=== PATIENT | female | born 1930 | race Caucasian/White ===

== ENCOUNTER 2018-11-16 14:39 | Observation (INO) | payer MEDICARE ==
[~2018-11-16 14:39] MED LIST: ISOVUE-370 76%-LOCM 1 ML ONE
--- NOTE | 2018-11-16 15:58 | CT ---
CT ANGIOGRAM CHEST WITH CONTRAST: HISTORY: Syncopal episode. COMPARISON: Radiograph of same day. FINDINGS: CT angiogram chest performed after the intravenous administration of contrast. Three-D rendering pro vided. No pulmonary embolism. No pericardial effusion. Pulmonary trunk size is normal. No aneurysmal dilatation of the aorta. No mediastinal adenopathy. Limited evaluation of the upper abdomen is unremarkable. Mild scarring posterior segment right upper lobe. Mild atelectasis in the lower lobes. No pneumotho rax. No effusion. No focal airspace consolidation. No displaced rib fracture. IMPRESSION: No pulmonary embolism or other acute abnormality within the chest. No evidence for pneumonia. POS: [facility]
[2018-11-16] MEDS ORDERED: Enalaprilat Dihydrate 1.25 MG in Dextrose 5% in Water 50 ML SLOW IVP SCH (16:30)
[2018-11-16] MEDS ORDERED: Ondansetron PF 4 MG/2 ML Vial IVP PRN (17:06)
[2018-11-16] MEDS ORDERED: Acetaminophen 650 MG Suppository PR PRN (17:06)
[2018-11-16] MEDS ORDERED: Bisacodyl 5 MG TAB PO PRN (17:06)
[2018-11-16] MEDS ORDERED: Acetaminophen 325 MG TAB PO PRN (17:06)
[2018-11-16] MEDS ORDERED: hydrALAZINE 20 MG/ML VIAL SLOW IVP PRN (17:10)
[2018-11-16] MEDS ORDERED: Labetalol HCl 100 MG/20 ML VIAL SLOW IVP PRN (17:11)
[2018-11-16] MEDS ORDERED: Enalaprilat Dihydrate 1.25 MG in Dextrose 5% in Water 50 ML IVPB SCH (17:15)
--- NOTE | 2018-11-16 17:54 | CT ---
CT OF BRAIN PERFORMED WITHOUT CONTRAST ENHANCEMENT: 11/16/18 COMPARISON: 06/19/17 exam. HISTORY: Syncopal episode. There is some residual contrast present related to a CT angio of the chest done earlier today. The ventricular and cisternal system shows some mild atrophy. There is no signs of intracerebral hemo rrhage or extra-axial fluid collections. Mastoid air cells and visualized sinuses are clear. IMPRESSION: No acute intracranial abnormalities. POS: [facility]
--- NOTE | 2018-11-16 18:13 | HP ---
PRIMARY CARE PROVIDER: Dr. James Garrison. OFFICE MACHINE SERVICER: Dr. Escobar. THEATER MANAGER: Dr. Michael. CHIEF COMPLAINT: Near syncope. HISTORY OF PRESENT ILLNESS: Ms. Weiss is a pleasant 88-year-old lady, who was seen at [facility] on November 16, 2018. She reports that she has had spells where she feels like she is going to pass out. She reports that over the last few weeks. These spells have become more frequent, occurring when she goes to check her mail. Her mailbox is about 40 yards away. She never has this sensation when she is lying down. She was seen by her gauge operator last week. The plan was to obtain a 2D echocardiogram next week. She also reports being diagnosed with essential thrombocythemia. She is currently on hydroxyurea. She initially thought that the medication she is taking for essential thrombocythemia is causing her near syncopal episodes. She has been reassured that this is not the cause. Today, she left home to go to the [employer] shop around 8:30 a.m. After driving three miles from home, she felt like passing out. She turned the car around and went home. Her son took her to the emergency room at [place], from where she was transferred to the emergency room at [place]. She also reports that several years ago she had a syncopal episode while at [facility], for which she needed hospitalization. She was diagnosed with cardiac valve problem in 2017. Currently, she feels generalized weakness, but no other complaints. REVIEW OF SYSTEMS: All systems were reviewed and found to be negative. PAST MEDICAL HISTORY: Hypertension, essential thrombocythemia, and hypothyroidism. PAST SURGICAL HISTORY: Tonsillectomy, right knee surgery, hysterectomy, and bilateral rotator cuff surgery. FAMILY HISTORY: Significant for myocardial infarction in two brothers. CODE STATUS: I discussed her code status. She is full code. SOCIAL HISTORY: The patient denies tobacco use, alcohol use, or recreational drug use. ALLERGIES: BENADRYL, CODEINE, PENICILLIN, AND SULFA. CURRENT MEDICATIONS: 1. Levothyroxine 50 mcg daily. 2. Lasix 40 mg daily. 3. Amlodipine 2.5 mg daily. 4. Metoprolol tartrate 12.5 mg daily. 5. Losartan 25 mg daily. 6. Hydroxyurea 500 mg 2 times a day. 7. Potassium 10 mEq daily. 8. PreserVision one capsule daily. 9. Vision Formula tablet one tablet daily. 10. Aspirin 81 mg daily. 11. Clonidine 0.1 mg at bedtime. 12. Systane eye drops. PHYSICAL EXAMINATION: GENERAL: On examination, Ms. Weiss is awake and alert, not in acute distress. VITAL SIGNS: Blood pressure is 188/72, pulse 76, respiratory rate 18, and oxygen saturation 98% on room air. She is afebrile. EYES: No scleral icterus, no conjunctival pallor. ENT: Moist mucosal membranes. No oropharyngeal erythema or exudates. NECK: Supple, nontender, trachea is midline. RESPIRATORY: Accessory muscles of breathing are not active. Chest wall movements are symmetric bilaterally. Lungs are clear to auscultation without wheeze, rhonchi, or crepitations. CARDIOVASCULAR: S1 and S2 are heard, regular. Peripheral pulses palpable. ABDOMEN: Soft, nontender, bowel sounds are heard. NEUROLOGIC: Cranial nerves 2 through 12 are intact, no focal motor or sensory deficits, power is 5/5 in all four extremities, deep tendon reflexes 2+, plantars downgoing bilaterally. MUSCULOSKELETAL: Power is 5/5 in all 4 extremities. SKIN: No rashes or subcutaneous nodules. LYMPHATIC: No cervical lymphadenopathy. PSYCHIATRIC: Normal mood, normal affect, the patient is oriented to person, place, and time. LABORATORY DATA: Ms. Weiss's labs and investigations were reviewed. I reviewed her electrocardiogram, which shows normal sinus rhythm, no ST changes to suggest an acute coronary syndrome. I also reviewed her chest x-ray, which does not show any pulmonary infiltrates. She has normal white count, normal hemoglobin, normal platelet count of 159,000, platelet count was elevated at 429,000 on June 19, 2017. She has normal electrolytes and normal creatinine. Alkaline phosphatase is mildly elevated at 120. Otherwise, LFTs are unremarkable. BNP is mildly elevated at 143.3. ASSESSMENT AND PLAN: Ms. Weiss is a pleasant 88-year-old lady, who was seen at [facility] on November 16, 2018. Her problem list includes. 1. Near syncope: Ms. Weiss is presenting with near syncope, etiology unclear. It appears that her symptoms have been going on for at least a few weeks. She will be admitted to the hospital for further management. She will be monitored on telemetry to rule out arrhythmias. She will also have a noncontrast CT scan of the brain to rule out intracranial causes for her near syncope. Cardiology Service will be consulted. We will check her TSH level. We will also check orthostatic vitals. We will also check 2D echocardiogram. 2. Hypertensive urgency: When the patient initially presented to the hospital, she had blood pressure of 214/82 at this emergency room. She will be started on p.r.n. intravenous antihypertensives to bring the blood pressure down. 3. Essential thrombocythemia: Her platelet count is normal today. We will recheck CBC. 4. Abnormal LFTs: Alkaline phosphatase is very mildly elevated. This can be followed up as outpatient. Many thanks for allowing me to participate in your patient's care. Please feel free to contact me with any questions or concerns. LEVEL OF RISK: High. LEVEL OF COMPLEXITY: High. Job ID: [id number]
[2018-11-16 18:52] VITALS: BMI 25.0
[2018-11-16] MEDS: Hydroxyurea 500 MG CAP PO SCH (20:42)
[2018-11-16] MEDS ORDERED: Aspirin 81 mg Enteric Coated Tablet PO SCH (21:00)
[2018-11-16] MEDS ORDERED: Non-Formulary Item 1 EACH (Biotin [Biotin] 5 MG) PO SCH (21:00)
[2018-11-16] MEDS ORDERED: cloNIDine 0.1 MG TAB PO SCH (21:00)
[2018-11-16] MEDS ORDERED: Losartan 25 MG TAB PO SCH (21:00)
[2018-11-17] MEDS ORDERED: Levothyroxine Sodium 50 MCG TAB PO SCH (06:00)
[2018-11-17 06:32] LABS: Anion Gap 15 mmol/L (10-20); BUN (Urea Nitrogen) 19 mg/dL (9.8-20.1); Calc. Creatinine Clearance 48 mL/min (70-130); Calcium 9.3 mg/dL (7.8-10.44); Carbon Dioxide 25 mmol/L (23-31); Chloride 104 mmol/L (98-107); Estimated GFR-MDRD 66; Glucose 85 mg/dL (83-110); Potassium 3.5 mmol/L (3.5-5.1); Sodium 140 mmol/L (136-145)
[2018-11-17 07:01] LABS: #Eosinphils 0.1 thou/uL (0.0-0.7); #Lymphocytes 1.8 thou/uL (1.20-3.40); #Monocytes 0.3 thou/uL (0.11-0.59); #Neutrophils 1.9 thou/uL (1.40-6.50); %Eosinophils 2.9 % (0.0-10.0); %Monocytes 7.4 % (0.0-10.0); %Neutrophils 45.8 % (42.0-75.0); Hemoglobin 12.3 g/dL (12.0-16.0); MDiff Complete? YES; Macrocytosis SLIGHT = 6-15 cells (100X) (0-5/hpf); Mean Corpuscular HGB CONC 36.7 g/dL (32.0-36.0); Mean Corpuscular Hemoglobin 43.1 pg (27.0-31.0); Mean Platelet Volume 6.4 fL (7.4-10.4); Platelet Count 156 thou/uL (130-400); Platelet Morphology Comment Appears Adequate; RBC Distribution Width 16.8 % (11.5-14.5); Red Blood Cell (RBC) Count 2.85 mill/uL (4.20-5.40); White Blood Cell (WBC) Count 4.2 thou/uL (4.8-10.8)
[2018-11-17] MEDS ORDERED: Potassium Chloride 10 MEQ TAB PO SCH (08:00)
[2018-11-17] MEDS: Hydroxyurea 500 MG CAP PO SCH (08:58)
[2018-11-17] MEDS ORDERED: Enoxaparin Sodium 40 MG/0.4 ML SYRINGE SC SCH (09:00)
[2018-11-17] MEDS ORDERED: Amlodipine 5 MG TAB PO SCH (09:00)
[2018-11-17] MEDS ORDERED: Multivit, Therapeutic 1 TAB PO SCH (09:00)
[2018-11-17] MEDS ORDERED: Furosemide 40 MG TAB PO SCH (09:00)
[2018-11-17] MEDS ORDERED: Vit A,C & E/Lutein/Minerals Tablet PO SCH (09:00)
--- NOTE | 2018-11-17 16:30 | PDOC.HOSPP ---
- Subjective Encounter Date: 11/17/18 Encounter Time: 12:20 Subjective: Pt seen for followup re: near syncope. Feels well, no complaints. - Objective Vital Signs & Weight: Vital Signs (12 hours) Temp Pulse Resp BP BP BP BP 11/17/18 14:09 64 138/68 11/17/18 11:23 97.6 F 62 18 150/78 H 11/17/18 07:46 97.7 F 73 18 118/65 125/65 125/68 Pulse Ox 11/17/18 14:09 11/17/18 11:23 96 11/17/18 07:46 97 Weight Weight 140 lb 14.4 oz I&O: 11/16/18 11/17/18 11/18/18 06:59 06:59 06:59 Intake Total 480 Output Total 400 1875 Balance 80 -1875 Result Diagrams: 11/17/18 05:48 11/17/18 05:48 Additional Labs: Labs and MARs reviewed by wa Hospitalist ROS - Review of Systems Respiratory: denies: cough, shortness of breath, SOB with excertion, pleuritic pain, wheezing Cardiovascular: denies: chest pain, palpitations, orthopnea, paroxysmal noc. dyspnea, edema, light headedness - Medication Medications: Active Medications Generic Name Dose Route Start Last Admin Trade Name Freq PRN Reason Stop Dose Admin Acetaminophen 650 mg 11/16/18 17:06 11/16/18 21:44 Tylenol PO 650 mg Q4H PRN Administration Headache/Fever/Mild Pain (1-3) Amlodipine Besylate 2.5 mg 11/17/18 09:00 11/17/18 08:56 Norvasc PO 2.5 mg DAILY NUBIA Administration Aspirin 81 mg 11/16/18 21:00 11/16/18 20:42 Ecotrin PO 81 mg HS NUBIA Administration Clonidine 0.1 mg 11/16/18 21:00 11/16/18 20:42 Catapres PO 0.1 mg HS NUBIA Administration Enoxaparin Sodium 40 mg 11/17/18 09:00 11/17/18 08:57 Lovenox SC 40 mg 0900 NUBIA Administration Furosemide 40 mg 11/17/18 09:00 11/17/18 08:58 Lasix PO 40 mg DAILY NUBIA Administration Hydroxyurea 500 mg 11/16/18 21:00 11/17/18 08:58 Hydrea PO 500 mg BID NUBIA Administration Levothyroxine Sodium 50 mcg 11/17/18 06:00 11/17/18 05:45 Synthroid PO 50 mcg 0600 NUBIA Administration Losartan Potassium 100 mg 11/16/18 21:00 11/16/18 20:42 Cozaar PO 100 mg HS NUBIA Administration Metoprolol Succinate 12.5 mg 11/17/18 12:00 11/17/18 14:11 Toprol Xl PO 12.5 mg 1200 NUBIA Administration Multivitamins 1 tab 11/17/18 09:00 11/17/18 08:58 Theragran PO 1 tab DAILY NUBIA Administration Multivitamins/Minerals 1 tab 11/17/18 09:00 11/17/18 08:58 Ocuvite With Lutein PO 1 tab DAILY NUBIA Administration Potassium Chloride 10 meq 11/17/18 08:00 11/17/18 08:56 Klor-Con 10 PO 10 meq QAM-WM NUBIA Administration Sodium Chloride 10 ml 11/16/18 18:46 11/16/18 20:44 Flush - Normal Saline IVF 10 ml PRN PRN Administration Saline Flush - Exam General Appearance: NAD Eye: anicteric sclera ENT: moist mucosa Neck: supple Heart: RRR Respiratory: CTAB Gastrointestinal: soft, non-tender Extremities: no edema Musculoskeletal: normal tone, normal strength Psychiatric: normal affect, normal behavior Hosp A/P (1) Near syncope Status: Acute (2) HTN (hypertension) Code(s): I10 - ESSENTIAL (PRIMARY) HYPERTENSION Status: Chronic (3) Essential thrombocythemia Code(s): D47.3 - ESSENTIAL (HEMORRHAGIC) THROMBOCYTHEMIA Status: Chronic (4) Hypertensive urgency Code(s): I16.0 - HYPERTENSIVE URGENCY Status: Resolved - Plan plan discussed w/ family, out of bed/ambulate No recurrence of near syncope. No orthostatic hypotension. Monitor vital signs, titrate antihypertensives as needed. Await 2D echo report and cardiology input. Plt count is normal, continue hydroxyurea.
[2018-11-17 19:51] VITALS: BP 158/70; TEMP 98.5
--- NOTE | 2018-11-17 20:37 | CON ---
DATE OF CONSULTATION: 11/17/2018 REASON FOR CONSULTATION: Near-syncope. PRIMARY STRIP FEEDER: Judith Escobar MD HISTORY OF PRESENT ILLNESS: Ms. Weiss is a very pleasant 88-year-old white female who comes to the hospital as she was feeling presyncopal. She was driving around to the [employer], and she felt presyncopal. She decided to turn around and go back home. She was evaluated by Dr. Escobar, nurse practitioner in [place] last week and she had her clonidine decreased as it was felt that this was related to low blood pressure. She continued to feel this way. She had a minimal improvement. She had a followup with Dr. Escobar sometime later this week with an echocardiogram. She is currently feeling much better. She is back to normal. Her blood pressure is normal in the 110s to 130s. She is still negative. She has been told she has a valve problem in the past; however, nothing significant. She has essential thrombocytopenia. She feels she was started on hydroxyurea recently, and this may have made this situation a little bit worse, so she is already feeling it beforehand. PAST MEDICAL HISTORY: 1. Hypertension. 2. Essential thrombocythemia. 3. Hypothyroidism. PAST SURGICAL HISTORY: 1. Tonsillectomy. 2. Right knee surgery. 3. Hysterectomy. 4. Bilateral rotator cuff surgeries. FAMILY HISTORY: Two brothers with heart attacks in their 70s. SOCIAL HISTORY: No alcohol, tobacco, or drugs. OUTPATIENT MEDICATIONS: Include: 1. Levothyroxine 50 mcg a day. 2. Lasix 40 mg a day. 3. Amlodipine 2.5 mg a day. 4. Metoprolol tartrate 12.5 mg b.i.d. 5. Losartan 25 mg a day. 6. Hydroxyurea 500 mg b.i.d. 7. Potassium chloride 10 mEq a day. 8. PreserVision. 9. Vision Formula daily. 10. Aspirin 81. 11. Clonidine 0.1 mg at bedtime. She had her noon dose stopped recently. 12. Systane eye drops. ALLERGIES: BENADRYL, CODEINE, PENICILLIN, AND SULFA. REVIEW OF SYSTEMS: 12-point review of systems was done and was all negative unless stated in History of Present Illness. PHYSICAL EXAMINATION: VITAL SIGNS: Temperature 98.3, pulse 71, respiratory rate 16, sat 95% on room air, and blood pressure 136/66. GENERAL: Awake, alert, and oriented x3, in no distress. HEENT: Normocephalic and atraumatic. CARDIOVASCULAR: S1 and S2. No S3 or S4. LUNGS: Clear to auscultation. ABDOMEN: Soft. Positive bowel sounds. EXTREMITIES: Trace edema. SKIN: Warm and dry. LABORATORY DATA: Laboratory work was reviewed. White count of 4.2, hemoglobin of 12, hematocrit of 33, and platelet count of 156. Chemistries were unremarkable. TSH is normal. Echocardiogram was reviewed, [id number] AI, [id number] TR. RVSP was 30 mmHg. EF is normal. Grade 1 diastolic dysfunction. Mild to moderate PI was noted as well. ASSESSMENT AND PLAN: 1. Presyncope. 2. No tachy or bradyarrhythmia. No major valvular abnormality. 3. She may be discharged to home from the cardiac perspective. She will follow up with Dr. Escobar in the next 1 or 2 weeks. She may need to monitor, however, she was lightheaded when she came in, and her heart rate was normal. This may be related to moments of orthostatic hypotension or labile hypertension at times. On arrival to the ER, her blood pressure was 214/82, much normalized now. She may just need p.r.n. doses of clonidine. Thank you for letting me to participate in the care of your patient. We will sign off. Please call with any questions. Job ID: [id number]
--- NOTE | 2018-11-19 15:15 | DIS ---
DATE OF ADMISSION: 11/16/2018 DATE OF DISCHARGE: 11/17/2018 PRIMARY CARE PROVIDER: James Garrison MD DISCHARGE DIAGNOSIS: Near syncope. CONSULTATIONS DURING THIS HOSPITALIZATION: Cardiology, Dr. Smith. CONDITION OF PATIENT ON THE DAY OF DISCHARGE: Stable. I assessed Ms. Weiss on the day of discharge. Please refer to my daily hospitalist progress note for further details regarding this [id number] encounter. DISCHARGE MEDICATIONS: No change was made to her pre-admission home medications. FOLLOWUP APPOINTMENTS: Primary care provider in 3 to 5 days and with Cardiology Dr. Escobar in 2 weeks. HOSPITAL COURSE: Ms. Weiss is a pleasant 88-year-old lady, who was admitted to [facility] for near syncope on November 16, 2018. Please refer to my history and physical note dated November 16, 2018, for further details. She was monitored on telemetry. She was seen by Cardiology Service. She had 2D echocardiogram, which showed left ventricular ejection fraction of 55% to 60%, grade 1/3 diastolic dysfunction, moderate mitral regurgitation, aortic valve sclerosis but opening well, [id number] aortic regurgitation, mild to moderate tricuspid regurgitation, and mild to moderate pulmonic regurgitation. She also had hypertensive urgency at the time of admission, which resolved during this hospitalization. She has been cleared for discharge by Cardiology Service and will follow up with Cardiology Service as outpatient. Many thanks for allowing me to participate in your patient's care. Please feel free to contact me with any questions or concerns. DISCHARGE DESTINATION: Home. Job ID: [id number]
== END 2018-11-17 20:35 | disposition home or self-care (01) ==
LOC: ERS 14:39 → 2SW 18:43
PROVIDERS: ADMIT Internal Medicine; ATTEND Internal Medicine
DX: R55 Syncope and collapse (principal); I08.3 Combined rheumatic disorders of mitral, aortic and tricuspid valves; I16.0 Hypertensive urgency; I10 Essential (primary) hypertension; D47.3 Essential (hemorrhagic) thrombocythemia; E03.9 Hypothyroidism, unspecified; R74.8 Abnormal levels of other serum enzymes; Z79.82 Long term (current) use of aspirin; Z79.899 Other long term (current) drug therapy; Z88.0 Allergy status to penicillin; Z88.2 Allergy status to sulfonamides; Z88.5 Allergy status to narcotic agent; Z88.8 Allergy status to other drugs, medicaments and biological substances
CPT/HCPCS: 36415; 70450; 71275; 80048; 84443; 85025; 93005; 93306; 96365; 96372; G0378; J1650; Q9966

== ENCOUNTER 2019-10-11 19:52 | Inpatient (IN) | payer MEDICARE, OTHER ==
[2019-10-11 23:07] VITALS: BMI 23.8
[2019-10-11] MEDS ORDERED: Diltiazem 125 MG in Sodium Chloride 0.9% 100 ML IVPB SCH (23:15)
[2019-10-11] MEDS ORDERED: Enoxaparin Sodium 60 MG/0.6 ML SYRINGE SC SCH (23:15)
[2019-10-11 23:43] LABS: Troponin I 0.056 ng/mL (< 0.028)
--- NOTE | 2019-10-11 23:43 | HP ---
REASON FOR ADMISSION: Shortness of breath. HISTORY OF PRESENT ILLNESS: This is an 89-year-old female patient who was driving home and while driving, she developed acute onset of shortness of breath. She was able to make it home and then took her blood pressure. Her heart rate was found to be 178. She called her neighbor who is an EMT who rechecked her blood pressure and heart rate and advised to go to the emergency room. In the ER, she was found to be in rapid atrial fibrillation. She was started on a Cardizem drip. Her heart rate came down and she felt much better. The patient follows with mass spectroscopist Dr. Escobar and she saw the doctor a month ago. There was a discussion that she might need a pacemaker, the patient has been having episodes where she has sudden onset of lightheadedness and near syncope. Reviewing her records, her last admission to our hospital was in October 2018. She was admitted for a near syncopal episode. She had an echocardiogram that showed an EF of 55% and grade 1 diastolic dysfunction. PAST MEDICAL HISTORY: 1. High blood pressure. 2. Essential thrombocythemia. 3. Hypothyroidism. PAST SURGICAL HISTORY: 1. Post knee surgery. 2. Post hysterectomy. 3. Bilateral rotator cuff surgery. FAMILY HISTORY: Positive for coronary artery disease. SOCIAL HISTORY: She does not smoke. Does not drink alcohol. REVIEW OF SYSTEMS: All systems reviewed except the above mentioned, found to be negative. PHYSICAL EXAMINATION: GENERAL: She is awake, alert, oriented, does not appear in distress. VITAL SIGNS: Her blood pressure is 121/68, heart rate of 90, temperature is 98.4, saturating 99% room air. HEAD: Nontraumatic, normocephalic. Pupils equal, reactive to light. Extraocular movements are intact. Nonicteric sclerae. Well injected conjunctivae. Oral mucosa normal. Nasal mucosa normal. NECK: Supple. No adenopathy. No murmur. Thyroid is not palpable. Trachea is midline. No supraclavicular adenopathy. HEART: S1, S2 irregular. No murmurs. No gallops. No friction rubs. No displacement of PMI. LUNGS: Clear to auscultation bilaterally. No wheezes, rhonchi or crackles. ABDOMEN: Bowel sounds are positive. Nontender abdomen. No hepatosplenomegaly. No lower extremity edema. No cyanosis noted. Neurologic: Cranial nerve 2-12 within normal limits. Normal motor function. Normal sensory function. Normal reflexes. LABORATORY DATA: Blood work shows WBC of 6.9, hemoglobin 14.7, platelets of 295. Sodium 143, potassium 3.1, bicarb 21, creatinine 1.08, magnesium 2.1. IMAGING: Chest x-ray shows no acute cardiopulmonary process. EKG shows rapid atrial fibrillation. ASSESSMENT AND PLAN: This is an 89-year-old female patient who is presenting with rapid atrial fibrillation. Cardiac: Patient will be on telemetry. She will be maintained on a Cardizem drip. We will start her on Lovenox. We will place a consultation for Cardiology for further recommendations. She said that she recently had an echocardiogram. I would not repeat that test unless Cardiology wants to order it again. We will cycle cardiac enzymes and provide with blood pressure control. We will maintain her on Lasix, on aspirin. Continue with her Toprol. Endocrinology: She is on levothyroxine. Continue with that. Hematology: She is on hydroxyurea. Continue with that as well. For deep venous thrombosis prophylaxis, she will be on sequential compression devices. I did discuss with her code status and she wishes to be full code. Job ID: [id number]
[2019-10-12] MEDS ORDERED: Enoxaparin Sodium 60 MG/0.6 ML SYRINGE SC SCH ×2 (01:30→23:04)
[2019-10-12 05:11] LABS: #Eosinphils 0.1 thou/uL (0.0-0.7); #Monocytes 0.7 thou/uL (0.11-0.59); #Neutrophils 4.1 thou/uL (1.40-6.50); %Basophils 0.6 % (0.0-1.0); %Lymphocytes 29.6 % (21.0-51.0); %Monocytes 10.1 % (0.0-10.0); %Neutrophils 58.7 % (42.0-75.0); Mean Corpuscular HGB CONC 34.9 g/dL (32.0-36.0); Mean Corpuscular Hemoglobin 38.6 pg (27.0-31.0); Mean Platelet Volume 6.6 fL (7.4-10.4); Platelet Count 251 thou/uL (130-400); RBC Distribution Width 11.8 % (11.5-14.5); Red Blood Cell (RBC) Count 3.89 mill/uL (4.20-5.40); White Blood Cell (WBC) Count 6.9 thou/uL (4.8-10.8)
[2019-10-12 05:29] LABS: Troponin I 0.046 ng/mL (< 0.028)
[2019-10-12 05:40] LABS: Anion Gap 15 mmol/L (10-20); BUN (Urea Nitrogen) 21 mg/dL (9.8-20.1); Calc. Creatinine Clearance 42 mL/min (70-130); Calcium 8.9 mg/dL (7.8-10.44); Carbon Dioxide 24 mmol/L (23-31); Chloride 109 mmol/L (98-107); Estimated GFR-MDRD 58; Glucose 108 mg/dL (83-110); Potassium 3.5 mmol/L (3.5-5.1); Sodium 144 mmol/L (136-145)
[2019-10-12] MEDS: Levothyroxine Sodium 50 MCG TAB PO SCH (05:56)
[2019-10-12] MEDS ORDERED: Amlodipine 5 MG TAB PO SCH (09:00)
[2019-10-12] MEDS: Losartan 25 MG TAB PO SCH (09:28)
[2019-10-12] MEDS: Furosemide 40 MG TAB PO SCH (09:28)
[2019-10-12] MEDS ORDERED: Metoprolol Tartrate 25 MG TAB PO SCH (10:30)
[2019-10-12] MEDS: Hydroxyurea 500 MG CAP PO SCH (10:45)
--- NOTE | 2019-10-12 11:06 | PDOC.HOSPP ---
- Subjective Encounter Date: 10/12/19 Encounter Time: 09:45 Subjective: Patient feels better than yesterday. Pulse in the 70s. She is on home Lopressor which we can start today at slightly higher dose and wean her off the Cardizem drip. She has seen Dr. Escobar in the past. It appears a few weeks ago she had a event monitor and plan to be evaluated by Dr. Rowe for possible pacer placement. She is not able to get an appointment until October. She is converted to sinus rhythm around 3 AM. - Objective Vital Signs & Weight: Vital Signs (12 hours) Temp Pulse Resp BP Pulse Ox 10/12/19 09:28 68 10/12/19 07:50 98.3 F 68 16 141/64 H 98 10/12/19 03:22 98.4 F 74 18 149/67 H 97 Weight Weight 138 lb 8 oz I&O: 10/11/19 10/12/19 10/13/19 06:59 06:59 06:59 Intake Total 900 Output Total 50 200 Balance 850 -200 Result Diagrams: 10/12/19 04:48 10/12/19 04:48 Hospitalist ROS - Medication Medications: Active Medications Generic Name Dose Route Start Last Admin Trade Name Freq PRN Reason Stop Dose Admin Furosemide 40 mg 10/12/19 09:00 10/12/19 09:28 Lasix PO 40 mg DAILY NUBIA Administration Hydroxyurea 500 mg 10/12/19 09:00 10/12/19 10:45 Hydrea PO 500 mg DAILY NUBIA Administration Levothyroxine Sodium 50 mcg 10/12/19 06:00 10/12/19 05:56 Synthroid PO 50 mcg 0600 NUBIA Administration Losartan Potassium 100 mg 10/12/19 09:00 10/12/19 09:28 Cozaar PO 100 mg DAILY NUBIA Administration Metoprolol Tartrate 25 mg 10/12/19 10:30 10/12/19 10:44 Lopressor PO 10/12/19 12:30 25 mg NOW NUBIA Administration - Exam General Appearance: NAD, awake alert Eye: PERRL ENT: normocephalic atraumatic Neck: supple Heart: RRR Respiratory: CTAB, normal chest expansion Gastrointestinal: soft, normal bowel sounds Neurological: no focal deficits Psychiatric: A&O x 3 Hosp A/P - Plan A. fib with RVR -Rate control with Cardizem drip at 5 -Will wean her off the drip. -She is already converted to sinus rhythm. -We will start her on her home regimen of Lopressor. -Currently she is on Lovenox twice a day will wait for the echo if it is normal with no valvular abnormalities will likely put her on Eliquis. -Patient states that she has no history of peptic ulcer disease or any kind ofGI bleed in the past. Idiopathic thrombocytopenia -Continue with hydroxyurea Hypothyroidism -Continue with the levothyroxine supplement. TSH normal range
[2019-10-12] MEDS ORDERED: Metoprolol Tartrate 5 MG/5 ML VIAL IVP PRN (11:07)
[2019-10-12] MEDS ORDERED: Amiodarone 200 MG TAB PO SCH (11:45)
--- NOTE | 2019-10-12 12:45 | CON ---
DATE OF CONSULTATION: HISTORY OF PRESENT ILLNESS: Liliana Weiss is an 89-year-old white female who has followed with Dr. Escobar for many years. She does have mild proximal LAD disease on catheterization in July 2016. She was hospitalized here in October 2018 with lightheadedness. Echo at that time revealed ejection fraction of 55% to 60% with diastolic dysfunction, moderate mitral regurgitation, [id number] aortic insufficiency, aortic valvular sclerosis, [id number]-[id number] tricuspid regurgitation, and pikc-fv-ifnmyjow pulmonic regurgitation. She was most recently seen in the office on September 10, 2019. She had a monitor placed previously, and it was felt that she may have needed a pacemaker. She did have episodes of supraventricular tachycardia, which appeared to be fairly irregular and may have been atrial fibrillation. She now is admitted after an episode where she became acutely short of breath. She denied any palpitations or chest discomfort. She went to the [facility], was found to be in atrial fibrillation with a rate of 153 per minute. She was given Cardizem 20 mg IV, placed on 5 mg/hour drip, and transferred here. She has since converted to sinus rhythm. 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 OPERATIONS: Hysterectomy, left rotator cuff repair, right knee surgery, right rotator cuff repair, tonsillectomy, and removal of breast cysts. MEDICATIONS: 1. Amlodipine 2.5 mg b.i.d. 2. Aspirin 81 daily. 3. Clonidine 0.1 mg at bedtime. 4. Furosemide 40 q.a.m. 5. Hydroxyurea 500 mg daily. 6. Levothyroxine 50 mcg daily. 7. Losartan 100 mg daily. 8. Metoprolol 12.5 mg daily. 9. Potassium chloride 10 mEq daily. ALLERGIES: CODEINE, BENADRYL, HYDROCODONE, PENICILLIN, AND SULFA. SOCIAL HISTORY: She does not smoke or drink. PHYSICAL EXAMINATION: VITAL SIGNS: Blood pressure 141/64, pulse of 68 and regular. HEENT: PERRL. NECK: Supple. CHEST: Clear. CARDIAC: S1 and S2 normal without any S3, S4, or murmurs. ABDOMEN: Normal bowel sounds without tenderness. EXTREMITIES: Reveal no clubbing, cyanosis, or edema. NEUROLOGICAL: Grossly intact. SKIN: Warm and dry. LABORATORY DATA: Admission EKG in [facility] revealed atrial fibrillation with rapid ventricular response of 153 per minute and nonspecific ST and T-wave changes. Hemoglobin 15.0, hematocrit 43.1, white count 6900, and platelets 251,000 (in the past, platelets have been as high as 475,000). Sodium 144, potassium 3.5, chloride 109, carbon dioxide 24, BUN 21, and creatinine 0.91. Troponin I 0.056. TSH is normal x2. IMPRESSION: 1. Atrial fibrillation with fast ventricular response, which has converted with intravenous Cardizem. 2. Uvq-MY-nedkajtnh myocardial infarction type 2. 3. Hypertension. 4. Essential thrombocytosis. 5. Hypothyroidism. 6. Mild coronary artery disease. PLAN: Ms. Weiss has had falls at home with head trauma with such a fall last year. I will maintain her on the Lovenox 1 mg/kg b.i.d., but she may not be a good candidate for anticoagulation due to her falls. We discussed antiarrhythmics to suppress her atrial fibrillation. She is very concerned about the pruett of the medication and states that a friend of hers was placed on rhythm medicine that cost 800 dollars a month. She states she cannot afford this. Therefore, I will start her on amiodarone 400 mg b.i.d. She will continue to be monitored for the next 2 to 3 days. Echocardiogram will be performed. Job ID: [id number] [id number]
[2019-10-12 14:07] LABS: SARS-CoV-2 MS2 Positive; SARS-CoV-2 N Gene Negative; SARS-CoV-2 S Gene Negative; SARS-CoV-2 by NAA Not Detected (NotDetected); SARS-CoV-2 orf1ab Negative
[2019-10-12] MEDS: Amiodarone 200 MG TAB PO SCH (21:53)
[2019-10-12] MEDS: cloNIDine 0.1 MG TAB PO SCH (21:53)
[2019-10-12] MEDS: Aspirin 81 mg Enteric Coated Tablet PO SCH (21:53)
[2019-10-12] MEDS: Metoprolol Tartrate 25 MG TAB PO SCH (21:53)
[2019-10-13] MEDS: Levothyroxine Sodium 50 MCG TAB PO SCH (05:26)
[2019-10-13 05:39] LABS: Hemoglobin 14.3 g/dL (12.0-16.0); Platelet Count 257 thou/uL (130-400)
[2019-10-13] MEDS: Furosemide 40 MG TAB PO SCH (08:51)
[2019-10-13] MEDS: Amiodarone 200 MG TAB PO SCH ×2 (08:51→21:20)
[2019-10-13] MEDS: Losartan 25 MG TAB PO SCH (08:51)
[2019-10-13] MEDS: Metoprolol Tartrate 25 MG TAB PO SCH ×2 (08:51→21:20)
[2019-10-13] MEDS: Hydroxyurea 500 MG CAP PO SCH (08:51)
[2019-10-13] MEDS ORDERED: Amlodipine 5 MG TAB PO SCH (11:00)
--- NOTE | 2019-10-13 12:11 | PDOC.HOSPP ---
- Subjective Encounter Date: 10/13/19 Encounter Time: 10:10 Subjective: She needs resting. She does not have any acute distress. She wants to know whether she would be able to get the labs that was scheduled to get at Dr. Michael 's clinic on Monday. She is not a strong candidate for anticoagulation for her A. fib given her fall history. Cardiology recommended amiodarone and she is currently on 400 with twice a day. We will get basic LFT. Her TSH is normal range. - Objective Vital Signs & Weight: Vital Signs (12 hours) Temp Pulse Resp BP Pulse Ox 10/13/19 11:37 98.2 F 60 16 193/77 H 96 10/13/19 07:51 97.9 F 75 17 176/79 H 97 10/13/19 03:33 97.7 F 53 L 20 149/69 H 94 L Weight Weight 141 lb 14.4 oz I&O: 10/12/19 10/13/19 10/14/19 06:59 06:59 06:59 Intake Total 900 1200 Output Total 50 200 Balance 850 1000 Result Diagrams: 10/13/19 04:46 10/13/19 04:46 Hospitalist ROS - Medication Medications: Active Medications Generic Name Dose Route Start Last Admin Trade Name Freq PRN Reason Stop Dose Admin Amiodarone HCl 400 mg 10/12/19 21:00 10/13/19 08:51 Cordarone PO 400 mg BID [facility] Administration Amlodipine Besylate 2.5 mg 10/13/19 11:00 10/13/19 11:43 Norvasc PO 10/13/19 13:00 2.5 mg NOW NUBIA Administration Aspirin 81 mg 10/12/19 21:00 10/12/19 21:53 Ecotrin PO 81 mg HS N[facility]IA Administration Clonidine 0.1 mg 10/12/19 21:00 10/12/19 21:53 Catapres PO 0.1 mg HS N[facility]IA Administration Furosemide 40 mg 10/12/19 09:00 10/13/19 08:51 Lasix PO 40 mg DAILY [facility] Administration Hydroxyurea 500 mg 10/12/19 09:00 10/13/19 08:51 Hydrea PO 500 mg DAILY [facility] Administration Levothyroxine Sodium 50 mcg 10/12/19 06:00 10/13/19 05:26 Synthroid PO 50 mcg 0600 [facility] Administration Losartan Potassium 100 mg 10/12/19 09:00 10/13/19 08:51 Cozaar PO 100 mg DAILY [facility] Administration Metoprolol Tartrate 25 mg 10/12/19 21:00 10/13/19 08:51 Lopressor PO 25 mg BID N[facility]IA Administration - Exam General Appearance: NAD, awake alert Eye: PERRL ENT: normocephalic atraumatic Neck: supple Heart: RRR Respiratory: CTAB, normal chest expansion Gastrointestinal: soft, normal bowel sounds Psychiatric: A&O x 3 Hosp A/P - Plan A. fib with RVR -Rate control with Cardizem drip at 5 -Will wean her off the drip. -She is already converted to sinus rhythm. -We will start her on her home regimen of Lopressor. -Currently she is on Lovenox twice a day will wait for the echo if it is normal with no valvular abnormalities will likely put her on Eliquis. -Patient states that she has no history of peptic ulcer disease or any kind ofGI bleed in the past. Idiopathic thrombocytopenia -Continue with hydroxyurea Hypothyroidism -Continue with the levothyroxine supplement. TSH normal range She wants to know whether she would be able to get the labs that was scheduled to get at Dr. Michael's clinic on Monday. She is not a strong candidate for anticoagulation for her A. fib given her fall history. Cardiology recommended amiodarone and she is currently on 400 with twice a day. We will get basic LFT. Her TSH is normal range. She already has a chest x-ray on October 10. Echo report shows EF of 55%; she also has mild mitral regurgitation aortic regurgitation as well as tricuspid regurgitation. And history of SVT on October 2018 and was on event monitor briefly. Her A. fib has been noted even in August 2019. I believe she is probably following Dr. Michael's clinic for her thrombocytopenia she is on hydroxyurea. Her platelet count today is 257,000. Try to reach Dr. Michael today. We will check with him tomorrow whether they need any other labs as she is scheduled to get it on Monday.
[2019-10-13 13:13] LABS: ALT (SGPT) 15 U/L (8-55); AST (SGOT) 28 U/L (5-34); Alkaline Phosphatase 110 U/L (40-110); Bilirubin, Direct 0.2 mg/dL (0.1-0.3); Bilirubin, Total 0.4 mg/dL (0.2-1.2); Protein, Total 7.4 g/dL (6.0-8.3)
[2019-10-13] MEDS: cloNIDine 0.1 MG TAB PO SCH (21:19)
[2019-10-13] MEDS: Aspirin 81 mg Enteric Coated Tablet PO SCH (21:20)
[2019-10-13] MEDS: Enoxaparin Sodium 60 MG/0.6 ML SYRINGE SC SCH (21:20)
[2019-10-14] MEDS: Levothyroxine Sodium 50 MCG TAB PO SCH (05:30)
[2019-10-14 05:47] LABS: ALT (SGPT) 12 U/L (8-55); AST (SGOT) 23 U/L (5-34); Albumin 3.5 g/dL (3.4-4.8); Alkaline Phosphatase 89 U/L (40-110); Bilirubin, Direct 0.2 mg/dL (0.1-0.3); Bilirubin, Total 0.5 mg/dL (0.2-1.2); Protein, Total 6.5 g/dL (6.0-8.3)
[2019-10-14] MEDS: Losartan 25 MG TAB PO SCH (08:42)
[2019-10-14] MEDS: Amiodarone 200 MG TAB PO SCH ×2 (08:42→20:17)
[2019-10-14] MEDS: Furosemide 40 MG TAB PO SCH (08:42)
[2019-10-14] MEDS: Hydroxyurea 500 MG CAP PO SCH (08:43)
[2019-10-14] MEDS ORDERED: cloNIDine 0.1 MG TAB PO PRN (08:47)
[2019-10-14] MEDS: Enoxaparin Sodium 60 MG/0.6 ML SYRINGE SC SCH ×2 (08:49→20:16)
[2019-10-14] MEDS: Metoprolol Tartrate 25 MG TAB PO SCH ×2 (08:50→20:18)
[2019-10-14] MEDS: Amlodipine 5 MG TAB PO SCH ×2 (08:51→20:18)
[2019-10-14] MEDS ORDERED: Amlodipine 5 MG TAB PO SCH (09:00)
--- NOTE | 2019-10-14 09:48 | PDOC.HOSPP ---
- Subjective Encounter Date: 10/14/19 Encounter Time: 09:46 Subjective: Patient seen and examined. No new complaints. The patient says she is feeling much better, denies any chest pain, shortness of breath or light headedness. No overnight events. - Objective Vital Signs & Weight: Vital Signs (12 hours) Temp Pulse Resp BP Pulse Ox 10/14/19 07:30 97.8 F 53 L 15 179/76 H 97 10/14/19 04:40 97.7 F 51 L 18 141/64 H 97 10/14/19 00:22 97.3 F L 48 L 18 107/57 L 93 L Weight Weight 137 lb 1.6 oz I&O: 10/13/19 10/14/19 10/15/19 06:59 06:59 06:59 Intake Total 1200 2040 Output Total 200 1300 Balance 1000 740 Result Diagrams: 10/13/19 04:46 10/13/19 04:46 Hospitalist ROS - Review of Systems Constitutional: denies: fever, chills Cardiovascular: denies: chest pain, palpitations, edema, light headedness Gastrointestinal: denies: nausea, vomiting, abdominal pain, diarrhea Neurological: denies: weakness, change in speech, confusion All other systems reviewed; all pertinent +/- noted in HPI/Subj - Medication Medications: Active Medications Generic Name Dose Route Start Last Admin Trade Name Freq PRN Reason Stop Dose Admin Amiodarone HCl 400 mg 10/12/19 21:00 10/14/19 08:42 Cordarone PO 400 mg BID NUBIA Administration Amlodipine Besylate 2.5 mg 10/14/19 09:00 10/14/19 08:51 Norvasc PO Not Given BID NUBIA Aspirin 81 mg 10/12/19 21:00 10/13/19 21:20 Ecotrin PO 81 mg HS NUBIA Administration Clonidine 0.1 mg 10/12/19 21:00 10/13/19 21:19 Catapres PO 0.1 mg HS NUBIA Administration Enoxaparin Sodium 60 mg 10/13/19 21:00 10/14/19 08:49 Lovenox SC 60 mg BID NUBIA Administration Furosemide 40 mg 10/12/19 09:00 10/14/19 08:42 Lasix PO 40 mg DAILY N[facility]IA Administration Hydroxyurea 500 mg 10/12/19 09:00 10/14/19 08:43 Hydrea PO 500 mg DAILY [facility]IA Administration Levothyroxine Sodium 50 mcg 10/12/19 06:00 10/14/19 05:30 Synthroid PO 50 mcg 0600 NUBIA Administration Losartan Potassium 100 mg 10/12/19 09:00 10/14/19 08:42 Cozaar PO 100 mg DAILY [facility]IA Administration Metoprolol Tartrate 25 mg 10/12/19 21:00 10/14/19 08:50 Lopressor PO Not Given BID NUBIA - Exam General Appearance: NAD, awake alert Eye: PERRL Neck: supple, no JVD Heart: RRR, no murmur, no gallops, no rubs, normal peripheral pulses Respiratory: CTAB, no wheezes, no rales, no ronchi, normal chest expansion, no tachypnea Gastrointestinal: soft, non-tender, non-distended, normal bowel sounds, no bruit , no guarding, no rigidity Extremities: no cyanosis, no edema Neurological: normal sensation to touch, no weakness, no focal deficits Psychiatric: normal affect, A&O x 3 Hosp A/P (1) Atrial fibrillation with RVR Code(s): I48.91 - UNSPECIFIED ATRIAL FIBRILLATION Status: Acute Plan: Patient sinus rhythm. On BB and amiodarone 400 mg twice daily per cardiology recommendation. Anticoagulated on Lovenox 1 mg/kg. Patient expressed concerned about the pruett of oral anticoagulants. Will need further discussion about options for anticoagulation. (2) Chronic ITP (idiopathic thrombocytopenia) Code(s): D69.3 - IMMUNE THROMBOCYTOPENIC PURPURA Status: Chronic Plan: Patient condition followed by Dr. Michael. Platelets 257 thousand this morning. Patient says that she needs to have labs drawn tomorrow per Dr. Michael. I spoke with Karen via phone and she said that the patient just needed a CBC with differential. Will order CBC with differential tomorrow. (3) Hypothyroidism Code(s): E03.9 - HYPOTHYROIDISM, UNSPECIFIED Status: Chronic Plan: TSH level within normal limits. Patient on levothyroxine 50 mcg daily. - Plan Lovenox for DVT prophylaxis. No GI prophylaxis. Full code. Discussed case with Dr. Sewell.
--- NOTE | 2019-10-14 12:56 | PDOC.CPN ---
- Subjective Date: 10/14/19 Time: 09:00 Interval history: The pt seen and examined. No overnight events. No cardiac complaints. - Objective Allergies/Adverse Reactions: Allergies Allergy/AdvReac Type Severity Reaction Status Date / Time codeine Allergy Verified 10/11/19 23:33 diphenhydramine Allergy Verified 10/11/19 23:33 [From Benadryl] hydrocodone Allergy hallucinati Verified 10/11/19 23:33 ons Penicillins Allergy numb Verified 10/11/19 23:33 around mouth Sulfa (Sulfonamide Allergy Verified 10/11/19 23:33 Antibiotics) Visit Medications: Current Medications Amiodarone HCl (Cordarone) 400 mg PO BID [facility] Last Admin: 10/14/19 08:42 Dose: 400 mg Amlodipine Besylate (Norvasc) 2.5 mg PO BID [facility] Last Admin: 10/14/19 08:51 Dose: Not Given Aspirin (Ecotrin) 81 mg PO HS [facility] Last Admin: 10/13/19 21:20 Dose: 81 mg Clonidine (Catapres) 0.1 mg PO HS [facility] Last Admin: 10/13/19 21:19 Dose: 0.1 mg Clonidine (Catapres) 0.1 mg PO Q4H PRN PRN Reason: Hypertension SBP>170 Enoxaparin Sodium (Lovenox) 60 mg SC BID [facility] Last Admin: 10/14/19 08:49 Dose: 60 mg Furosemide (Lasix) 40 mg PO DAILY [facility] Last Admin: 10/14/19 08:42 Dose: 40 mg Hydroxyurea (Hydrea) 500 mg PO DAILY [facility] Last Admin: 10/14/19 08:43 Dose: 500 mg Levothyroxine Sodium (Synthroid) 50 mcg PO 0600 [facility] Last Admin: 10/14/19 05:30 Dose: 50 mcg Losartan Potassium (Cozaar) 100 mg PO DAILY [facility] Last Admin: 10/14/19 08:42 Dose: 100 mg Metoprolol Tartrate (Lopressor) 25 mg PO BID [facility] Last Admin: 10/14/19 08:50 Dose: Not Given Metoprolol Tartrate (Lopressor) 5 mg IVP Q4H PRN PRN Reason: Blood Pressure SBP>150 HR>90 Stop: 10/15/19 11:08 Vital Signs & Weight: Vital Signs Temp Pulse Resp BP Pulse Ox 10/14/19 11:23 97.7 F 57 L 16 141/67 H 95 10/14/19 07:30 97.8 F 53 L 15 179/76 H 97 10/14/19 04:40 97.7 F 51 L 18 141/64 H 97 Weight 137 lb 1.6 oz - Physical Exam General: alert & oriented x3 HEENT: mucus membranes moist Neck: supple neck Cardiac: regular rate and rhythm, S1/S2 Lungs: clear to auscultation, decreased breath sounds Neuro: cranial nerve 2-12 intact Extremities: no edema - Labs Result Diagrams: 10/13/19 04:46 10/13/19 04:46 Troponin/CKMB Troponin I 0.046 ng/mL (< 0.028) H 10/12/19 04:48 - Telemetry Sinus rhythms and dysrhythmias: sinus rhythm - Assessment/Plan Assessment/Plan: 1. Afib with RVR - remains in SR since 10/13/2019; On Amiodarone 400mg BID since 10/13/2019; on Metoprolol and Lovenox BID; Will request EP consult by Dr Rowe. 2. Dizziness - she felt very dizziness and almost passed out prior to presenting ER; 3. HTN - stable with current med; cont. to monitor 4. hypothyroidism 5. Mod MR 6. Chronic ITP (idiopathic thrombocytopenia) MAR reviewed * Echo on 10/12/2019 with EF 55-60%, mod MR and AR, and mild TR
--- NOTE | 2019-10-14 18:07 | CON ---
DATE OF CONSULTATION: 10/14/2019 PRIMARY CARE PHYSICIAN: James Garrison MD. REFERRING CLIENT LIAISON: Judith Escobar MD REASON FOR CONSULTATION: Sick sinus syndrome, paroxysmal atrial fibrillation. HISTORY OF PRESENT ILLNESS: Ms. Weiss is a very pleasant 89-year-old white female with a history of coronary artery disease with cardiac catheterization in 2017 showing a 40% proximal LAD lesion, hypertension, essential thrombocytosis and TIA. She has a history of palpitations and had a 2-week monitor placed by Dr. Escobar, which showed episodes of narrow complex tachycardia without clear P waves. She was admitted on 10/10 with atrial fibrillation with rapid ventricular response and presyncope. She lives in [place], was driving home from [employer]. She felt her heart racing and moderate shortness of breath. There were no exacerbating or alleviating factors. The episode lasted several hours. When she got home, she began to feel worse, call her son, a neighbor took her to the [facility] where she was noted to be in atrial fibrillation with rapid ventricular response. She was treated with intravenous diltiazem and oral amiodarone. She has spontaneously converted to sinus rhythm. On telemetry today, she has had several-minute episode of sustained atrial tachycardia. Lab work shows troponin-I of 0.46. She has normal renal function and no anemia. PAST MEDICAL HISTORY: 1. Hypertension. 2. Essential thrombocytosis. 3. Hypothyroidism. 4. Macular degeneration. 5. Coronary artery disease as above. 6. TIA. 7. Dyslipidemia. PAST SURGICAL HISTORY: 1. Breast cyst removal. 2. Throat surgery. 3. Hysterectomy. 4. Left rotator cuff surgery. 5. Bilateral lens implants. 6. Right knee surgery. 7. Right rotator cuff surgery. 8. Tonsillectomy and adenoidectomy. 9. Cardiac catheterization as above. FAMILY HISTORY: Positive for cerebral hemorrhage in her father. SOCIAL HISTORY: She lives in [place]. She has a son who lives nearby. Nonsmoker. ALLERGIES: SULFA, PENICILLIN, CODEINE, BENZONATATE, AND HYDROCODONE. OUTPATIENT MEDICATIONS: 1. Hydroxyurea 500 mg daily. 2. Levothyroxine 50 mcg daily. 3. PreserVision one tablet daily. 4. Systane (PF) eyedrops daily. 5. Multivitamin daily. 6. Potassium chloride 10 mEq daily. 7. Aspirin 81 mg daily. 8. Losartan 100 mg daily. 9. Clonidine 0.1 mg q.p.m. 10. Furosemide 40 mg daily. 11. Amlodipine 5 mg 1/2 tablet daily. 12. Toprol ER 25 mg 1/2 tablet daily. 13. Biotin 5000 mcg one capsule daily. REVIEW OF SYSTEMS: Negative for seizures, syncope, recent neurologic changes, melena, bright blood red per rectum, hematemesis, or chest discomfort. PHYSICAL EXAMINATION: GENERAL: Alert and oriented x4, in no apparent distress. VITAL SIGNS: Afebrile, pulse 51, respiratory rate 12, oxygen saturation 97% on room air, and blood pressure 141/64. LABORATORY DATA: WBC 6.9, hemoglobin 15.0, and platelets 251. Sodium 144, potassium 3.5, and creatinine 0.9. Recent AST and ALT normal. COVID-19 negative. IMAGING STUDIES: Echocardiogram on 10/12/2019; normal left atrial size, ejection fraction 55% to 60%, structurally normal valves with moderate aortic regurgitation, moderate mitral regurgitation, and mild tricuspid regurgitation. IMPRESSION: 1. Paroxysmal atrial fibrillation with rapid ventricular response. She has spontaneously converted to sinus rhythm. 2. Sustained atrial tachycardia. 3. Sick sinus syndrome with symptomatic bradycardia. She has moderate daily fatigue and heart rates in the high 40s consistently here in the hospital. 4. Coronary artery disease with preserved left ventricular systolic function. 5. History of TIA. RECOMMENDATIONS: 1. Continue Lovenox 60 mg subcutaneously b.i.d. 2. Continue amiodarone 400 mg b.i.d. 3. Continue aspirin. 4. She will need permanent pacemaker implantation at some point. We have discussed this at length. I would prefer to have her anticoagulated for a few weeks prior to pacemaker implantation if her clinical course allows. If her clinical course does not allow, we will plan to do this sooner. We will continue on Lovenox for now should she need interventions this hospitalization and transition her to Eliquis 2.5 mg b.i.d. at discharge. We will continue to follow her. Job ID: [id number] MTDD
[2019-10-14] MEDS: cloNIDine 0.1 MG TAB PO SCH (20:17)
[2019-10-14] MEDS: Aspirin 81 mg Enteric Coated Tablet PO SCH (20:17)
[2019-10-15 04:39] LABS: #Eosinphils 0.1 thou/uL (0.0-0.7); #Lymphocytes 2.3 thou/uL (1.20-3.40); #Monocytes 0.7 thou/uL (0.11-0.59); #Neutrophils 3.9 thou/uL (1.40-6.50); %Basophils 0.5 % (0.0-1.0); %Eosinophils 1.3 % (0.0-10.0); %Lymphocytes 33.6 % (21.0-51.0); %Monocytes 9.4 % (0.0-10.0); %Neutrophils 55.2 % (42.0-75.0); Hemoglobin 14.2 g/dL (12.0-16.0); Mean Corpuscular HGB CONC 34.5 g/dL (32.0-36.0); Mean Corpuscular Hemoglobin 37.3 pg (27.0-31.0); Mean Platelet Volume 6.8 fL (7.4-10.4); Platelet Count 267 thou/uL (130-400); RBC Distribution Width 11.5 % (11.5-14.5); Red Blood Cell (RBC) Count 3.82 mill/uL (4.20-5.40)
[2019-10-15 05:08] LABS: Anion Gap 13 mmol/L (10-20); BUN (Urea Nitrogen) 27 mg/dL (9.8-20.1); Calc. Creatinine Clearance 39 mL/min (70-130); Calcium 8.7 mg/dL (7.8-10.44); Carbon Dioxide 26 mmol/L (23-31); Chloride 103 mmol/L (98-107); Estimated GFR-MDRD 55; Glucose 93 mg/dL (83-110); Sodium 139 mmol/L (136-145)
[2019-10-15 05:14] LABS: Potassium 2.8 mmol/L (3.5-5.1)
[2019-10-15] MEDS: Levothyroxine Sodium 50 MCG TAB PO SCH (05:51)
[2019-10-15] MEDS ORDERED: Potassium Chloride 20 MEQ TAB PO SCH (06:00)
--- NOTE | 2019-10-15 08:16 | PDOC.EP ---
- Subjective Date: 10/15/19 Time: 08:14 Interval History: Overnight has done well. Some bradycardia into the 50's. No significant AF. Currently in SR. Labs reviewed and noted hypokalemia. Tolerating Amiodarone - Review of Systems Constitutional: denies: chills, fever Respiratory: denies: cough, shortness of breath Cardiology: denies: chest pain, edema, heart racing, light headedness, orthopnea , palpitations Gastrointestinal: denies: abdominal pain, nausea, vomitting Neurological: denies: headache, vision changes - Objective Allergies/Adverse Reactions: Allergies Allergy/AdvReac Type Severity Reaction Status Date / Time codeine Allergy Verified 10/11/19 23:33 diphenhydramine Allergy Verified 10/11/19 23:33 [From Benadryl] hydrocodone Allergy hallucinati Verified 10/11/19 23:33 ons Penicillins Allergy numb Verified 10/11/19 23:33 around mouth Sulfa (Sulfonamide Allergy Verified 10/11/19 23:33 Antibiotics) Current Medications Amiodarone HCl (Cordarone) 400 mg PO BID [facility] Last Admin: 10/14/19 20:17 Dose: 400 mg Amlodipine Besylate (Norvasc) 2.5 mg PO BID [facility] Last Admin: 10/14/19 20:18 Dose: 2.5 mg Aspirin (Ecotrin) 81 mg PO HS [facility] Last Admin: 10/14/19 20:17 Dose: 81 mg Clonidine (Catapres) 0.1 mg PO HS [facility] Last Admin: 10/14/19 20:17 Dose: 0.1 mg Clonidine (Catapres) 0.1 mg PO Q4H PRN PRN Reason: Hypertension SBP>170 Enoxaparin Sodium (Lovenox) 60 mg SC BID [facility] Last Admin: 10/14/19 20:16 Dose: 60 mg Furosemide (Lasix) 40 mg PO DAILY [facility] Last Admin: 10/14/19 08:42 Dose: 40 mg Hydroxyurea (Hydrea) 500 mg PO DAILY [facility] Last Admin: 10/14/19 08:43 Dose: 500 mg Levothyroxine Sodium (Synthroid) 50 mcg PO 0600 [facility] Last Admin: 10/15/19 05:51 Dose: 50 mcg Losartan Potassium (Cozaar) 100 mg PO DAILY [facility] Last Admin: 10/14/19 08:42 Dose: 100 mg Metoprolol Tartrate (Lopressor) 25 mg PO BID [facility] Last Admin: 10/14/19 20:18 Dose: 25 mg Metoprolol Tartrate (Lopressor) 5 mg IVP Q4H PRN PRN Reason: Blood Pressure SBP>150 HR>90 Stop: 10/15/19 11:08 Vital Signs & Weight: Vital Signs Temp Pulse Resp BP BP Pulse Ox 10/15/19 07:20 97.7 F 54 L 15 136/62 98 10/15/19 04:00 98.0 F 56 L 15 137/64 92 L 10/14/19 20:18 69 144/64 H 10/14/19 20:17 144/64 H Weight 137 lb 11.2 oz I/O: I/O 10/14/19 10/15/19 10/16/19 06:59 06:59 06:59 Intake Total 2040 1100 Output Total 1300 950 Balance 740 150 - Physical Exam General: alert & oriented x3, appears well Neck: supple neck Cardiology: regular rate and rhythm Lungs: normal breath sounds Neurology: grossly intact Abdomen: unremarkable Extremities: dry Musculoskeletal: no pain - Labs Result Diagrams: 10/15/19 04:07 10/15/19 04:07 - EKG Interpretation Status: report reviewed by me EKG Method: Telemetry EKG shows: Sinus rhythm - Problem (1) Sick sinus syndrome Code(s): I49.5 - SICK SINUS SYNDROME (2) Atrial fibrillation with RVR Code(s): I48.91 - UNSPECIFIED ATRIAL FIBRILLATION (3) Near syncope - Assessment/Plan Assessment/Plan: Continue Amiodarone as current. At discharge plan 200mg BID for outpatient dosing. Continue Lovenox for now. Discharge on Eliquis 2.5mg BID. She has concerns about cost, but our office will assist with this. Recommend potassium replacement today. Reviewed case with Dr. Rowe. Preference is to defer PM implant x1-2 weeks unless profound bradycardia. Would observe today and if stable ok to d/c tomorrow AM on above medications. We would then see her back early next week and arrange outpatient PM placement.
[2019-10-15] MEDS: Furosemide 40 MG TAB PO SCH (09:01)
[2019-10-15] MEDS: Losartan 25 MG TAB PO SCH (09:01)
[2019-10-15] MEDS: Amiodarone 200 MG TAB PO SCH ×2 (09:01→20:26)
[2019-10-15] MEDS: Hydroxyurea 500 MG CAP PO SCH (09:01)
[2019-10-15] MEDS: Enoxaparin Sodium 60 MG/0.6 ML SYRINGE SC SCH ×2 (09:02→20:25)
[2019-10-15] MEDS: Amlodipine 5 MG TAB PO SCH ×2 (09:02→20:27)
[2019-10-15] MEDS: Metoprolol Tartrate 25 MG TAB PO SCH ×2 (09:03→20:28)
[2019-10-15] MEDS ORDERED: Potassium Citrate 10 MEQ TAB PO SCH (09:15)
--- NOTE | 2019-10-15 10:03 | PDOC.HOSPP ---
- Subjective Encounter Date: 10/15/19 Encounter Time: 10:01 Subjective: Patient seen and examined. No new complaints. Denies any chest pain, heart palpitations, or SOB. She had episodes of bradycardia in 50s, currently sinus rhythm. Her potassium was low this morning and has been replaced. Magnesium relative low at 1.8. - Objective Vital Signs & Weight: Vital Signs (12 hours) Temp Pulse Resp BP Pulse Ox 10/15/19 07:20 97.7 F 54 L 15 136/62 98 10/15/19 04:00 98.0 F 56 L 15 137/64 92 L Weight Weight 137 lb 11.2 oz I&O: 10/14/19 10/15/19 10/16/19 06:59 06:59 06:59 Intake Total 2040 1100 Output Total 1300 950 Balance 740 150 Result Diagrams: 10/15/19 04:07 10/15/19 04:07 EKG Reviewed by me: Yes Hospitalist ROS - Review of Systems Constitutional: denies: fever, chills Respiratory: denies: cough, shortness of breath, SOB with excertion Cardiovascular: denies: chest pain, palpitations, edema Gastrointestinal: denies: nausea, vomiting, abdominal pain, diarrhea All other systems reviewed; all pertinent +/- noted in HPI/Subj - Medication Medications: Active Medications Generic Name Dose Route Start Last Admin Trade Name Freq PRN Reason Stop Dose Admin Amiodarone HCl 400 mg 10/12/19 21:00 10/15/19 09:01 Cordarone PO 400 mg BID NUBIA Administration Amlodipine Besylate 2.5 mg 10/14/19 09:00 10/15/19 09:02 Norvasc PO 2.5 mg BID NUBIA Administration Aspirin 81 mg 10/12/19 21:00 10/14/19 20:17 Ecotrin PO 81 mg HS NUBIA Administration Clonidine 0.1 mg 10/12/19 21:00 10/14/19 20:17 Catapres PO 0.1 mg HS NUBIA Administration Enoxaparin Sodium 60 mg 10/13/19 21:00 10/15/19 09:02 Lovenox SC 60 mg BID NUBIA Administration Furosemide 40 mg 10/12/19 09:00 10/15/19 09:01 Lasix PO 40 mg DAILY NUBIA Administration Hydroxyurea 500 mg 10/12/19 09:00 10/15/19 09:01 Hydrea PO 500 mg DAILY NUBIA Administration Levothyroxine Sodium 50 mcg 10/12/19 06:00 10/15/19 05:51 Synthroid PO 50 mcg 0600 NUBIA Administration Losartan Potassium 100 mg 10/12/19 09:00 10/15/19 09:01 Cozaar PO 100 mg DAILY NUBIA Administration Metoprolol Tartrate 25 mg 10/12/19 21:00 10/15/19 09:03 Lopressor PO 25 mg BID NUBIA Administration - Exam General Appearance: NAD, awake alert Heart: RRR, no murmur, no gallops, no rubs, normal peripheral pulses Respiratory: CTAB, no wheezes, no rales, no ronchi, normal chest expansion, no tachypnea Gastrointestinal: soft, non-tender, normal bowel sounds, no guarding, no rigidity Extremities: no cyanosis, no edema Neurological: normal sensation to touch, no weakness, no focal deficits Psychiatric: normal affect, A&O x 3 Hosp A/P (1) Sick sinus syndrome Code(s): I49.5 - SICK SINUS SYNDROME Status: Acute Plan: She will need a pacemaker. Per EP, the plan is to continue LMWH while inpatient , then transition to eliquis. Pacemaker in 1-2 weeks. The patient has concerns about the cost of eliquis. The EP office has offered to help with her concerns. (2) Hypokalemia Code(s): E87.6 - HYPOKALEMIA Status: Acute Plan: K 2.8 this morning. Given 40 mEq oral potassium. Will recheck in am. Mag level 1.8, relatively low, will replace with 2gm Magnesium. (3) Atrial fibrillation with RVR Code(s): I48.91 - UNSPECIFIED ATRIAL FIBRILLATION Status: Acute Plan: Currently NSR. Few episodes of SB. Continue Amiodarone 400mg BID and LMWH. Plan to discharge on Amiodarone 200mg BID and Eliquis 2.5mg BID per EP. (4) Chronic ITP (idiopathic thrombocytopenia) Code(s): D69.3 - IMMUNE THROMBOCYTOPENIC PURPURA Status: Chronic Plan: Patient Platelets stable, 267,000 today. (5) Hypothyroidism Code(s): E03.9 - HYPOTHYROIDISM, UNSPECIFIED Status: Chronic Plan: Patient taking home dose of levothyroxine. - Plan Lovenox for DVT prophylaxis. No GI prophylaxis. Full code. Discussed case with Dr. Sewell.
[2019-10-15] MEDS ORDERED: Magnesium 2 GM/50 ML 2 GM in Premix Bag 1 BAG IVPB SCH (10:30)
[2019-10-15 13:49] LABS: Potassium 3.9 mmol/L (3.5-5.1)
[2019-10-15] MEDS: cloNIDine 0.1 MG TAB PO SCH (20:25)
[2019-10-15] MEDS: Aspirin 81 mg Enteric Coated Tablet PO SCH (20:26)
[2019-10-16 04:19] LABS: Hemoglobin 14.1 g/dL (12.0-16.0); Platelet Count 269 thou/uL (130-400)
[2019-10-16] MEDS ORDERED: Clindamycin/D5W 900 MG in Premix Bag 1 BAG IVPB SCH (04:30)
[2019-10-16 04:38] LABS: Anion Gap 14 mmol/L (10-20); BUN (Urea Nitrogen) 24 mg/dL (9.8-20.1); Calc. Creatinine Clearance 42 mL/min (70-130); Calcium 8.6 mg/dL (7.8-10.44); Carbon Dioxide 24 mmol/L (23-31); Chloride 104 mmol/L (98-107); Estimated GFR-MDRD 59; Glucose 89 mg/dL (83-110); Potassium 3.5 mmol/L (3.5-5.1); Sodium 138 mmol/L (136-145)
[2019-10-16] MEDS: Levothyroxine Sodium 50 MCG TAB PO SCH (05:40)
--- NOTE | 2019-10-16 07:47 | PDOC.HOSPP ---
- Subjective Encounter Date: 10/16/19 Encounter Time: 07:45 Subjective: Patient seen and examined. No new complaints. Denies any chest pain, heart palpitations, or SOB. She had questions about pacemaker this morning. Discussed purpose of pacemaker. - Objective Vital Signs & Weight: Vital Signs (12 hours) Temp Pulse Resp BP Pulse Ox 10/16/19 04:00 97.7 F 50 L 13 142/67 H 95 10/15/19 20:25 98.5 F 63 18 149/66 H 97 Weight Weight 137 lb 7 oz I&O: 10/15/19 10/16/19 10/17/19 06:59 06:59 06:59 Intake Total 1100 1370 Output Total 950 2000 Balance 150 -630 Result Diagrams: 10/16/19 03:44 10/16/19 03:44 Hospitalist ROS - Review of Systems Constitutional: denies: fever, chills Respiratory: denies: cough, shortness of breath Cardiovascular: denies: chest pain, palpitations, edema, light headedness Gastrointestinal: denies: nausea, vomiting, abdominal pain, diarrhea All other systems reviewed; all pertinent +/- noted in HPI/Subj - Medication Medications: Active Medications Generic Name Dose Route Start Last Admin Trade Name Freq PRN Reason Stop Dose Admin Amiodarone HCl 400 mg 10/12/19 21:00 10/15/19 20:26 Cordarone PO 400 mg BID NUBIA Administration Amlodipine Besylate 2.5 mg 10/14/19 09:00 10/15/19 20:27 Norvasc PO 2.5 mg BID NUBIA Administration Aspirin 81 mg 10/12/19 21:00 10/15/19 20:26 Ecotrin PO 81 mg HS NUBIA Administration Clonidine 0.1 mg 10/12/19 21:00 10/15/19 20:25 Catapres PO 0.1 mg HS NUBIA Administration Enoxaparin Sodium 60 mg 10/13/19 21:00 10/15/19 20:25 Lovenox SC 60 mg BID NUBIA Administration Furosemide 40 mg 10/12/19 09:00 10/15/19 09:01 Lasix PO 40 mg DAILY NUBIA Administration Hydroxyurea 500 mg 10/12/19 09:00 10/15/19 09:01 Hydrea PO 500 mg DAILY NUBIA Administration Levothyroxine Sodium 50 mcg 10/12/19 06:00 10/16/19 05:40 Synthroid PO 50 mcg 0600 NUBIA Administration Losartan Potassium 100 mg 10/12/19 09:00 10/15/19 09:01 Cozaar PO 100 mg DAILY NUBIA Administration Metoprolol Tartrate 25 mg 10/12/19 21:00 10/15/19 20:28 Lopressor PO 25 mg BID NUBIA Administration Sodium Chloride 10 ml 10/15/19 21:00 10/15/19 20:28 Flush - Normal Saline IVF 10 ml Q12HR NUBIA Administration Sodium Chloride 10 ml 10/15/19 21:00 10/15/19 20:28 Flush - Normal Saline IVF Not Given Q12HR NUBIA - Exam General Appearance: NAD, awake alert ENT: normocephalic atraumatic Heart: RRR, no murmur, no gallops, no rubs, normal peripheral pulses Respiratory: CTAB, no wheezes, no rales, no ronchi, no tachypnea Gastrointestinal: soft, non-tender, non-distended, normal bowel sounds, no guarding, no rigidity Extremities: no cyanosis, no edema Musculoskeletal: normal tone, normal strength Psychiatric: normal affect, A&O x 3 Hosp A/P (1) Sick sinus syndrome Code(s): I49.5 - SICK SINUS SYNDROME Status: Acute Plan: Episodes of SB last night, HR 47-52, asymptomatic. No atrial fibrillation. Scheduled for Pacemaker insertion by Dr. Escobar today. Patient NPO. (2) Hypokalemia Code(s): E87.6 - HYPOKALEMIA Status: Resolved Plan: K 3.5 this morning. Continue to monitor. (3) Atrial fibrillation with RVR Code(s): I48.91 - UNSPECIFIED ATRIAL FIBRILLATION Status: Acute Plan: No episodes of atrial fibrillation last night. Continue oral Amiodarone, Metoprolol, and sc LMWH 1mg/kg. (4) Chronic ITP (idiopathic thrombocytopenia) Code(s): D69.3 - IMMUNE THROMBOCYTOPENIC PURPURA Status: Chronic Plan: Platelets stable, 269,000. Continue hydoxyurea. (5) Hypothyroidism Code(s): E03.9 - HYPOTHYROIDISM, UNSPECIFIED Status: Chronic Plan: Continue levothyroxine home med dosing. - Plan Discussed case with Dr. Sewell.
[2019-10-16] MEDS: Enoxaparin Sodium 60 MG/0.6 ML SYRINGE SC SCH ×2 (07:53→21:00)
[2019-10-16] MEDS ORDERED: Clindamycin/D5W 600 mg/50 ml Premix Bag ONE (08:16)
[2019-10-16] MEDS ORDERED: Lidocaine 1% (PF) 30 ML VIAL ONE ×2 (08:16→09:12)
[2019-10-16] MEDS ORDERED: Vancomycin HCl 500 MG VIAL ONE (08:17)
[2019-10-16] MEDS ORDERED: Levofloxacin 500 mg/D5W 100 ml Premix Bag ONE (08:20)
--- NOTE | 2019-10-16 08:58 | PDOC.EP ---
- Subjective Date: 10/16/19 Time: 08:56 Interval History: Some bradycardia overnight into the 40's. Possible junctional rhythm vs artifact. PM planned for today. Tolerating Amiodarone. Ms. Weiss has several questions about PM so we spent some time discussing risks/benefits. She is also concerned about cost of anticoagulation. Our office can assist with this though I think her Rx coverage is good. - Review of Systems Constitutional: denies: chills, fever, malaise Respiratory: denies: cough, shortness of breath, wheezing Cardiology: denies: chest pain, light headedness, orthopnea, passing out Gastrointestinal: denies: abdominal pain, nausea, vomitting Musculoskeletal: denies: unstable gait Neurological: denies: headache, vision changes - Objective Allergies/Adverse Reactions: Allergies Allergy/AdvReac Type Severity Reaction Status Date / Time codeine Allergy Verified 10/11/19 23:33 diphenhydramine Allergy Verified 10/11/19 23:33 [From Benadryl] hydrocodone Allergy hallucinati Verified 10/11/19 23:33 ons Penicillins Allergy numb Verified 10/11/19 23:33 around mouth Sulfa (Sulfonamide Allergy Verified 10/11/19 23:33 Antibiotics) Current Medications Amiodarone HCl (Cordarone) 400 mg PO BID [facility] Last Admin: 10/15/19 20:26 Dose: 400 mg Amlodipine Besylate (Norvasc) 2.5 mg PO BID [facility] Last Admin: 10/15/19 20:27 Dose: 2.5 mg Aspirin (Ecotrin) [address] [facility] Last Admin: 10/15/19 20:26 Dose: 81 mg Clonidine (Catapres) 0.1 mg PO HS [facility] Last Admin: 10/15/19 20:25 Dose: 0.1 mg Clonidine (Catapres) 0.1 mg PO Q4H PRN PRN Reason: Hypertension SBP>170 Enoxaparin Sodium (Lovenox) 60 mg SC BID [facility] Last Admin: 10/16/19 07:53 Dose: Not Given Furosemide (Lasix) 40 mg PO DAILY [facility] Last Admin: 10/15/19 09:01 Dose: 40 mg Hydroxyurea (Hydrea) 500 mg PO DAILY [facility] Last Admin: 10/15/19 09:01 Dose: 500 mg Clindamycin Phosphate/Dextrose (900 mg/ Device) 50 mls @ 0 mls/hr IVPB ONCALL- OR NUBIA Stop: 10/16/19 19:00 Levofloxacin 500 mg/ Device 100 mls @ 100 mls/hr IVPB ONCALL-OR NUBIA Stop: 10/16/19 19:00 Levothyroxine Sodium (Synthroid) 50 mcg PO 0600 [facility] Last Admin: 10/16/19 05:40 Dose: 50 mcg Losartan Potassium (Cozaar) 100 mg PO DAILY [facility] Last Admin: 10/15/19 09:01 Dose: 100 mg Metoprolol Tartrate (Lopressor) 25 mg PO BID [facility] Last Admin: 10/15/19 20:28 Dose: 25 mg Sodium Chloride (Flush - Normal Saline) 10 ml IVF Q12HR [facility] Last Admin: 10/15/19 20:28 Dose: 10 ml Sodium Chloride (Flush - Normal Saline) 10 ml IVF PRN PRN PRN Reason: Saline Flush Sodium Chloride (Flush - Normal Saline) 10 ml IVF Q12HR [facility] Last Admin: 10/15/19 20:28 Dose: Not Given Sodium Chloride (Flush - Normal Saline) 10 ml IVF PRN PRN PRN Reason: Saline Flush Vital Signs & Weight: Vital Signs Temp Pulse Resp BP Pulse Ox 10/16/19 07:55 97.8 F 54 L 17 140/65 97 10/16/19 04:00 97.7 F 50 L 13 142/67 H 95 Weight 137 lb 7 oz I/O: I/O 10/15/19 10/16/19 10/17/19 06:59 06:59 06:59 Intake Total 1100 1370 Output Total 950 2000 Balance 150 -630 - Physical Exam General: alert & oriented x3, speech clear Neck: supple neck Cardiology: regular rate and rhythm Lungs: normal breath sounds Neurology: grossly intact Abdomen: unremarkable Extremities: dry Skin: negative: hematoma Musculoskeletal: normal range of motion, no pain - Labs Result Diagrams: 10/16/19 03:44 10/16/19 03:44 - EKG Interpretation EKG Method: Telemetry EKG shows: Sinus rhythm - Problem (1) Sick sinus syndrome Code(s): I49.5 - SICK SINUS SYNDROME (2) Atrial fibrillation with RVR Code(s): I48.91 - UNSPECIFIED ATRIAL FIBRILLATION (3) Near syncope - Assessment/Plan Assessment/Plan: PM today Continue Amiodarone loading. Drop to 200mg BID at discharge Anticoagulation as outpatient. Will defer to Dr. Mena's on timing post-PM implant Our office can assist with Rx coverage issues on the Eliquis Will see her back in 2-3 weeks after hospital. Will follow along inpatient.
[2019-10-16] MEDS ORDERED: Midazolam HCl 2 mg/2 ml Vial ONE (09:03)
--- NOTE | 2019-10-16 10:31 | RAD ---
Exam: Chest one view HISTORY:New onset atrial fibrillation. Chest pain. Status post cardiac device placement. Comparison: 10/11/2019 FINDINGS: Cardiac silhouette:Stable cardiac silhouette Pacing device: Interval placement of a left-sided transvenous pacemaker with lead position of the rig ht atrium and right ventricle. Aorta: Unremarkable Pulmonary vessels: Normal Costophrenic angles: Clear LUNGS: No masses or consolidation. Pneumothorax: No pneumothorax. Stable bilateral apical pleural thickening, left greater than right. Osseous abnormalities: None IMPRESSION: Interval placement of left-sided transvenous pacing device. No pneumothorax.
[2019-10-16] MEDS: Amiodarone 200 MG TAB PO SCH ×2 (10:53→20:59)
[2019-10-16] MEDS: Metoprolol Tartrate 25 MG TAB PO SCH ×2 (10:53→21:00)
[2019-10-16] MEDS: Furosemide 40 MG TAB PO SCH (10:53)
[2019-10-16] MEDS: Hydroxyurea 500 MG CAP PO SCH (10:53)
[2019-10-16] MEDS: Losartan 25 MG TAB PO SCH (10:54)
[2019-10-16] MEDS: Amlodipine 5 MG TAB PO SCH ×2 (10:54→20:59)
[2019-10-16] MEDS: cloNIDine 0.1 MG TAB PO SCH (21:00)
[2019-10-16] MEDS: Aspirin 81 mg Enteric Coated Tablet PO SCH (21:00)
[2019-10-17] MEDS: Levothyroxine Sodium 50 MCG TAB PO SCH (05:13)
--- NOTE | 2019-10-17 08:31 | PDOC.EP ---
- Subjective Date: 10/17/19 Time: 08:29 Interval History: s/p PM implant. A-pacing at 60 this morning. Sandbag on left upper chest. She is doing well. No AF overnight. - Review of Systems Constitutional: denies: chills, fever, malaise Respiratory: denies: cough, dry Cardiology: denies: chest pain, edema Gastrointestinal: denies: nausea (minimal pain to left upper chest) - Objective Allergies/Adverse Reactions: Allergies Allergy/AdvReac Type Severity Reaction Status Date / Time codeine Allergy Verified 10/11/19 23:33 diphenhydramine Allergy Verified 10/11/19 23:33 [From Benadryl] hydrocodone Allergy hallucinati Verified 10/11/19 23:33 ons Penicillins Allergy numb Verified 10/11/19 23:33 around mouth Sulfa (Sulfonamide Allergy Verified 10/11/19 23:33 Antibiotics) Current Medications Amiodarone HCl (Cordarone) 400 mg PO BID [facility] Last Admin: 10/16/19 20:59 Dose: 400 mg Amlodipine Besylate (Norvasc) 2.5 mg PO BID [facility] Last Admin: 10/16/19 20:59 Dose: 2.5 mg Aspirin (Ecotrin) 81 mg PO HS [facility] Last Admin: 10/16/19 21:00 Dose: 81 mg Clonidine (Catapres) 0.1 mg PO HS [facility] Last Admin: 10/16/19 21:00 Dose: 0.1 mg Clonidine (Catapres) 0.1 mg PO Q4H PRN PRN Reason: Hypertension SBP>170 Enoxaparin Sodium (Lovenox) 60 mg SC BID [facility] Last Admin: 10/16/19 21:00 Dose: 60 mg Furosemide (Lasix) 40 mg PO DAILY [facility] Last Admin: 10/16/19 10:53 Dose: 40 mg Hydroxyurea (Hydrea) 500 mg PO DAILY [facility] Last Admin: 10/16/19 10:53 Dose: 500 mg Levothyroxine Sodium (Synthroid) 50 mcg PO 0600 [facility] Last Admin: 10/17/19 05:13 Dose: 50 mcg Losartan Potassium (Cozaar) 100 mg PO DAILY [facility] Last Admin: 10/16/19 10:54 Dose: 100 mg Metoprolol Tartrate (Lopressor) 25 mg PO BID [facility] Last Admin: 10/16/19 21:00 Dose: 25 mg Sodium Chloride (Flush - Normal Saline) 10 ml IVF Q12HR [facility] Last Admin: 10/16/19 21:00 Dose: Not Given Sodium Chloride (Flush - Normal Saline) 10 ml IVF PRN PRN PRN Reason: Saline Flush Sodium Chloride (Flush - Normal Saline) 10 ml IVF Q12HR [facility] Last Admin: 10/16/19 21:01 Dose: Not Given Sodium Chloride (Flush - Normal Saline) 10 ml IVF PRN PRN PRN Reason: Saline Flush Vital Signs & Weight: Vital Signs Temp Pulse Resp BP Pulse Ox 10/17/19 07:19 98.1 F 61 20 137/65 94 L 10/17/19 03:52 98.5 F 60 16 129/60 95 10/17/19 00:00 62 Weight 138 lb 11.2 oz I/O: I/O 10/16/19 10/17/19 10/18/19 06:59 06:59 06:59 Intake Total 1370 360 Output Total 2000 800 Balance -630 -440 - Physical Exam General: alert & oriented x3 Neck: supple neck Cardiology: regular rate and rhythm Lungs: normal breath sounds Neurology: grossly intact Extremities: dry Musculoskeletal: no pain - Labs Result Diagrams: 10/16/19 03:44 10/16/19 03:44 - EKG Interpretation EKG Method: Telemetry - Problem (1) Sick sinus syndrome Code(s): I49.5 - SICK SINUS SYNDROME (2) Atrial fibrillation with RVR Code(s): I48.91 - UNSPECIFIED ATRIAL FIBRILLATION (3) Near syncope - Assessment/Plan Assessment/Plan: 1. s/p PM doing well 2. Continue Amiodarone. 200mg BID at discharge. 3. Eliquis at discharge per Cardiology timing given PM implant 4. Our office will call on monday to arrange f/u appointment. 5. Thank you for this consult.
[2019-10-17] MEDS: Furosemide 40 MG TAB PO SCH (09:19)
[2019-10-17] MEDS: Metoprolol Tartrate 25 MG TAB PO SCH (09:21)
[2019-10-17] MEDS: Losartan 25 MG TAB PO SCH (09:21)
[2019-10-17] MEDS: Amiodarone 200 MG TAB PO SCH (09:22)
[2019-10-17] MEDS: Amlodipine 5 MG TAB PO SCH (09:22)
[2019-10-17] MEDS: Enoxaparin Sodium 60 MG/0.6 ML SYRINGE SC SCH (09:23)
[2019-10-17] MEDS: Hydroxyurea 500 MG CAP PO SCH (09:23)
--- NOTE | 2019-10-17 10:17 | PDOC.CPN ---
- Subjective Date: 10/17/19 Time: 09:30 Interval history: The pt seen and examined. No overnight events. No cardiac complaints. - Objective Allergies/Adverse Reactions: Allergies Allergy/AdvReac Type Severity Reaction Status Date / Time codeine Allergy Verified 10/11/19 23:33 diphenhydramine Allergy Verified 10/11/19 23:33 [From Benadryl] hydrocodone Allergy hallucinati Verified 10/11/19 23:33 ons Penicillins Allergy numb Verified 10/11/19 23:33 around mouth Sulfa (Sulfonamide Allergy Verified 10/11/19 23:33 Antibiotics) Visit Medications: Current Medications Amiodarone HCl (Cordarone) 400 mg PO BID [facility] Last Admin: 10/17/19 09:22 Dose: 400 mg Amlodipine Besylate (Norvasc) 2.5 mg PO BID [facility] Last Admin: 10/17/19 09:22 Dose: 2.5 mg Aspirin (Ecotrin) 81 mg PO HS [facility] Last Admin: 10/16/19 21:00 Dose: 81 mg Clonidine (Catapres) 0.1 mg PO HS [facility] Last Admin: 10/16/19 21:00 Dose: 0.1 mg Clonidine (Catapres) 0.1 mg PO Q4H PRN PRN Reason: Hypertension SBP>170 Enoxaparin Sodium (Lovenox) 60 mg SC BID [facility] Last Admin: 10/17/19 09:23 Dose: 60 mg Furosemide (Lasix) 40 mg PO DAILY [facility] Last Admin: 10/17/19 09:19 Dose: 40 mg Hydroxyurea (Hydrea) 500 mg PO DAILY [facility] Last Admin: 10/17/19 09:23 Dose: 500 mg Levothyroxine Sodium (Synthroid) 50 mcg PO 0600 [facility] Last Admin: 10/17/19 05:13 Dose: 50 mcg Losartan Potassium (Cozaar) 100 mg PO DAILY [facility] Last Admin: 10/17/19 09:21 Dose: 100 mg Metoprolol Tartrate (Lopressor) 25 mg PO BID [facility] Last Admin: 10/17/19 09:21 Dose: 25 mg Sodium Chloride (Flush - Normal Saline) 10 ml IVF Q12HR [facility] Last Admin: 10/17/19 09:24 Dose: Not Given Sodium Chloride (Flush - Normal Saline) 10 ml IVF PRN PRN PRN Reason: Saline Flush Sodium Chloride (Flush - Normal Saline) 10 ml IVF Q12HR [facility] Last Admin: 10/17/19 09:24 Dose: Not Given Sodium Chloride (Flush - Normal Saline) 10 ml IVF PRN PRN PRN Reason: Saline Flush Vital Signs & Weight: Vital Signs Temp Pulse Resp BP Pulse Ox 10/17/19 07:19 98.1 F 61 20 137/65 94 L 10/17/19 03:52 98.5 F 60 16 129/60 95 10/17/19 00:00 62 Weight 138 lb 11.2 oz - Physical Exam General: alert & oriented x3 HEENT: mucus membranes moist Neck: supple neck Cardiac: regular rate and rhythm Lungs: clear to auscultation Neuro: cranial nerve 2-12 intact Extremities: no edema Skin: other (PM site EMERGENC[employer] MAN, mildly swelling and mild hematoma without discharge or erythema) - Labs Result Diagrams: 10/16/19 03:44 10/16/19 03:44 Troponin/CKMB Troponin I 0.046 ng/mL (< 0.028) H 10/12/19 04:48 - Telemetry Sinus rhythms and dysrhythmias: other (A paced) - Assessment/Plan Assessment/Plan: 1. Afib with RVR - remains in SR since 10/13/2019; On Amiodarone 400mg BID since 10/13/2019 which will be changed to 200mg BID at discharge; on Metoprolol and Lovenox BID, which will be changed to Eliquis 2.5mg BID; appreciate Dr Rowe input. 2. SSS and s/p PM placement on 10/16/2019 - Recommend the pt to put frozen food bag to the pm site for swelling. 3. Dizziness with s/p near syncopal episode - s/p PM placement on 10/16/2019; 3. HTN - stable with current med; cont. to monitor 4. hypothyroidism 5. Mod MR 6. Chronic ITP (idiopathic thrombocytopenia) MAR reviewed * Echo on 10/12/2019 with EF 55-60%, mod MR and AR, and mild TR * Spoke with the pt's son about OAC option; 30 day free Eliquis coupon given to the pt. * From Cardiac standpoint, the pt is stable to d/c home; f/u with Dr Escobar' office in 10 days for hospital f/u and PM site check same day; Pt. seen and eval. by me. I agree with the A/P by the PMP PROJECT MANAGER. The pacemaker pocket is a little swollen and tender but no sign of infection or discharge. She has not had any arrhythmias and the pacemaker function appears stable. CXR: no pneumo or hemothorax. Leads in good position. I will see her back in 7-10 days for a wound check. She will f/u with Dr. Rowe concerningthe tachy-arrhythmias. tristan
--- NOTE | 2019-10-17 12:01 | CCLSPC ---
INDICATION FOR PROCEDURE: An 89-year-old female with sick sinus syndrome with tachy-pan with intermittent atrial fibrillation, intermittent supraventricular tachycardia and episodes of junctional rhythm with heart rates in the 30s and 40s. She was advised to undergo dual chamber pacemaker insertion. She was implanted with a dual chamber pacemaker from [employer], an [place] XT MRI compatible device which also has atrial therapies. She had one screw-in lead placed into the right ventricle and one tined lead placed into the right atrium. There were no difficulties or complications encountered. The pacemaker was set with the upper rate of 120, the lower rate was set at 60. No difficulties or complications were encountered. The patient will return to the floor. Full dictated note can be found in the chart. Job ID: [id number]
[2019-10-17 16:11] VITALS: BP 120/57; TEMP 97.3
[2019-10-17] MEDS ORDERED: Amiodarone 200 MG TAB PO SCH (21:00)
[2019-10-17] MEDS ORDERED: Apixaban 2.5 MG TAB PO SCH (21:00)
--- NOTE | 2019-10-18 05:44 | DIS ---
DATE OF ADMISSION: 10/13/2019 DATE OF DISCHARGE: 10/17/2019 DISCHARGE DIAGNOSES: 1. Atrial fibrillation with RVR. 2. Sick sinus syndrome, status post pacemaker placement. 3. Dizziness and status post presyncopal episodes. Pacemaker placement on October 15. Hypertension and hypothyroidism. 4. Moderate mitral regurgitation, chronic idiopathic thrombocytopenia on hydroxyurea, hypokalemia. DISCHARGE MEDICATIONS: 1. Eliquis 2.5 mg twice a day. 2. Amiodarone 200 mg twice a day. 3. Lopressor 25 mg twice a day. 4. Clonidine 0.1 mg at bedtime. 5. Levothyroxine 50 mcg daily. 6. Hydrea (hydroxyurea) 500 mg daily. 7. Aspirin 81 mg daily. 8. Lasix 40 mg daily. 9. Losartan 100 mg daily. 10. Potassium chloride 10 mEq daily. PHYSICAL EXAMINATION: VITAL SIGNS: On the day of discharge, temperature 98.5, pulse 61, blood pressure 122/57, saturating 94% on room air. GENERAL: The patient is alert, oriented, lying in the bed. The patient states that she is able to walk around with a walker and with supervision. Otherwise, she is doing well. She lives alone. She does have friends and family nearby. CARDIOVASCULAR: Regular rate and rhythm without murmurs, rubs, or gallops. LUNGS: Clear to auscultation bilaterally without wheezing, rales, or rhonchi. ABDOMEN: Soft, nontender, nondistended. Good bowel sounds. EXTREMITIES: Without any pitting edema. HOSPITAL COURSE: An 89-year-old female admitted with atrial fibrillation with RVR. Initially, we thought due to some fall history she may not be a strong candidate for anticoagulant, but with physical therapy evaluation, she seems to have a good functional status, so we started her on Lovenox twice a day dose and transitioned to Eliquis 2.5 based on her age. The patient also seemed to have sick sinus syndrome. She underwent pacemaker placement and today we are transitioning her from Lovenox to Eliquis. Her rate is controlled with amiodarone as well as Lopressor 25 twice a day. Amiodarone dose reduced to 200 twice a day. Her electrolytes were replaced. She does have chronic idiopathic thrombocytopenia, for which she follows with Hematology group. Her platelets were around 250,000 to 269,000. Her creatinine is 0.96. She is COVID negative. The patient reached maximum benefit during this hospitalization. She will be discharged with home health. DISCHARGE INSTRUCTIONS: Activity as tolerated. Healthy heart diet. Follow up with PCP in 1 week. Follow up with her deputy grand jury, Dr. Rowe in 1 to 2 weeks. Follow up with Dr. Escobar in 10 days. Discharge time took over 35 minutes. Job ID: [id number] [id number]
--- NOTE | 2019-10-19 23:40 | PQF ---
CLINICAL DOCUMENTATION CLARIFICATION FORM: Dear : Joe Sewell Date / Time: 10/20/2019 Please exercise your independent, professional judgment in responding to the clarification form. Clinical indicators are provided on the bottom of this form for your review Please check appropriate box(es) to clarify if the following diagnosis has been ruled in our ruled out: Type 2 NSTEMI [ ] Ruled in diagnosis [ ] Continue to treat [ ] Resolved [ x] Ruled out diagnosis [ ] Improving [ ] Cannot rule out diagnosis [ ] Other diagnosis [ ] Unable to determine In addition, please specify: Present on Admission (POA): [ ] Yes [ ] No [ ] Unable to determine To be completed by CDI/Coding staff for physician review: Present Clinical Indicators - Signs / Symptoms / Labs Results and Location in Medical Record [ x ] Prv-VG-ufnualueo myocardial infarction type 2 Consult 10/11 by Chance Banks MD [ x ] Troponin I 0.056 (H) on 10/10 and 0.046 (H) on 10/11 Laboratory [ x ] Echo on 10/11 with EF 55-60%, moderate MR, AR and TR Progress note 10/16 by Lacey Parks Present Risk Factors Results and Location in Medical Record [ x ] Atrial fibrillation, SSS and s/p pacemaker placement, hypertension and mitral regurgitation Progress note 10/16 by Lacey Parks Present Treatments Results and Location in Medical Record [ x ] Transthoracic echocardiography 10/11 by Chance Banks Echocardiogram report 10/11 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
--- NOTE | 2019-10-21 17:26 | EKG ---
Test Reason : Blood Pressure : / mmHG Vent. Rate : 061 BPM Atrial Rate : 062 BPM P-R Int : 000 ms QRS Dur : 080 ms QT Int : 352 ms P-R-T Axes : 000 -08 043 degrees QTc Int : 354 ms Electronic atrial pacemaker Nonspecific ST and T wave abnormality Abnormal ECG No previous ECGs available Confirmed by ERICA OCONNELL (2) on 10/21/2019 5:25:49 PM Referred By: JOSE Confirmed By:ERICA OCONNELL
== END 2019-10-17 17:13 | disposition home health service (06) | DRG 243 ==
LOC: 2NO 21:30 → INTOOBSV 21:30 → OBSVTOIN 10-13 17:20
PROVIDERS: ADMIT Internal Medicine; ATTEND Internal Medicine
PROC: 0JH606Z Insertion of Pacemaker, Dual Chamber into Chest Subcutaneous Tissue and Fascia, Open Approach (ICD-10-PCS; principal; 2019-10-16)
PROC: 02H63JZ Insertion of Pacemaker Lead into Right Atrium, Percutaneous Approach (ICD-10-PCS; 2019-10-16)
PROC: 02HK3JZ Insertion of Pacemaker Lead into Right Ventricle, Percutaneous Approach (ICD-10-PCS; 2019-10-16)
DX: I49.5 Sick sinus syndrome (principal); D69.3 Immune thrombocytopenic purpura; Z20.828 Contact with and (suspected) exposure to other viral communicable diseases; I48.91 Unspecified atrial fibrillation; I10 Essential (primary) hypertension; E03.9 Hypothyroidism, unspecified; I08.3 Combined rheumatic disorders of mitral, aortic and tricuspid valves; R55 Syncope and collapse; I25.10 Atherosclerotic heart disease of native coronary artery without angina pectoris; E87.6 Hypokalemia; Z90.710 Acquired absence of both cervix and uterus; Z98.890 Other specified postprocedural states; Z79.82 Long term (current) use of aspirin; Z79.899 Other long term (current) drug therapy; Z88.5 Allergy status to narcotic agent; Z88.0 Allergy status to penicillin; Z88.2 Allergy status to sulfonamides; Z88.8 Allergy status to other drugs, medicaments and biological substances
CPT/HCPCS: 33208; 36415; 36600; 71045; 80048; 80076; 82565; 83735; 84443; 84484; 85014; 85018; 85025; 85049; 87635; 93005; 93010; 93306; 93798; 96365; 96366; 96372; 99152; 99153; C1785; C1898; G0378; J1650; J1956; J2001; J2250; J3370; J3475; J3490; U0003